=== PATIENT | female | born 1960 | race Caucasian/White ===

== ENCOUNTER 2019-08-05 13:55 | Inpatient (IN) ==
[2019-08-05] MEDS ORDERED: Clindamycin 900 MG/50 ML 900 MG/50 ML IV.SOLN IVPB ONE (14:13)
[2019-08-05] MEDS ORDERED: *HR* Promethazine 25 MG/ML VIAL IVP PRN ×2 (14:14→20:46)
[2019-08-05] MEDS ORDERED: *HR* HYDROmorphone (PF) 1 MG/ML SYRINGE IVP PRN (14:14)
[2019-08-05] MEDS ORDERED: *HR* OxyCODONE Immed Rel 5 MG TABLET PO PRN (14:14)
[2019-08-05] MEDS ORDERED: Ondansetron 4 MG/2 ML VIAL IVP ONE (14:14)
[2019-08-05] MEDS ORDERED: Ringers Solution, Lactated 1,000 ML IVC SCH ×2 (14:15→20:46)
[2019-08-05] MEDS ORDERED: Albuterol 2.5 MG/3 ML NEBULIZER IH ONE (14:22)
[2019-08-05] MEDS ORDERED: Gabapentin 300 MG CAPSULE PO ONE (14:22)
[2019-08-05] MEDS ORDERED: Dexamethasone 10 MG/ML VIAL IVP ONE (14:22)
[2019-08-05] MEDS ORDERED: Lidocaine -MPF 2% 2 ML VIAL ONE (15:12)
[2019-08-05] MEDS ORDERED: Tranexamic Acid 1,000 MG/10 ML VIAL ONE (15:12)
[2019-08-05] MEDS ORDERED: *HR* Midazolam HCl 2 MG/2 ML VIAL ONE (15:12)
[2019-08-05] MEDS ORDERED: *HR* FentaNYL (PF) 100 MCG/2 ML VIAL ONE ×2 (15:12→18:00)
[2019-08-05] MEDS ORDERED: *HR* Propofol 200 MG/20 ML VIAL IVP ONE (15:12)
[2019-08-05] MEDS ORDERED: *HR* HYDROMORPHONE 2 MG/ML VIAL ONE (15:30)
[2019-08-05] MEDS ORDERED: Ropivacaine/PF 0.5% 30 ML VIAL ONE (15:48)
[2019-08-05] MEDS ORDERED: Ethanol\\Acetic Acid\\Na Ace\\Ben 1,000 ML IRRIG.SOLN IR ONE ×2 (15:51)
[2019-08-05] MEDS ORDERED: Dexamethasone 4 MG/ML VIAL ONE (16:20)
[2019-08-05] MEDS ORDERED: Ondansetron 4 MG/2 ML VIAL ONE (16:20)
[2019-08-05] MEDS ORDERED: CLONIDINE IR ONE (16:30)
[2019-08-05] MEDS ORDERED: EPINEPHRINE IR ONE (16:30)
[2019-08-05] MEDS ORDERED: [UNRECOGNIZED DRUG - OTHER] IR ONE (16:30)
[2019-08-05] MEDS ORDERED: ROPIVACAINE IR ONE (16:30)
[2019-08-05] MEDS ORDERED: *HR* PHENYLEPHRINE 1,000 MCG/10 ML SYRINGE IVP ONE (17:37)
[2019-08-05 18:51] LABS: Hematocrit 43.3 % (35.3-44.9)
[2019-08-05] MEDS ORDERED: Acetaminophen IV 1,000 MG/100 ML INFUS..BTL ONE (19:09)
[2019-08-05] MEDS ORDERED: Acetaminophen IV 1,000 MG/100 ML INFUS..BTL IVPB ONE (19:13)
[2019-08-05] MEDS ORDERED: Sennosides 8.6 MG TABLET PO PRN (20:46)
[2019-08-05] MEDS ORDERED: MOM Conc 10 ML UD.LIQ PO PRN (20:46)
[2019-08-05] MEDS ORDERED: Ondansetron 4 MG/2 ML VIAL IVP PRN (20:46)
[2019-08-05] MEDS ORDERED: Naloxone 0.4 MG/ML INJ IVP PRN (20:46)
[2019-08-05] MEDS ORDERED: Temazepam 15 MG CAPSULE PO PRN (20:46)
[2019-08-05] MEDS ORDERED: HYDROcodone BIT/Homatropine 5 MG TABLET PO PRN (20:46)
[2019-08-05] MEDS: Clindamycin 900 MG/50 ML 900 MG/50 ML IV.SOLN IVPB SCH (21:09)
[2019-08-05] MEDS: Ascorbic Acid 500 MG TABLET PO SCH (22:03)
[2019-08-06 04:58] LABS: Lymphocytes % 7.3 %; Mean Platelet Volume 10.6 fL (9.4-12.4)
[2019-08-06 05:00] LABS: Basophils % 0.2 %; Hematocrit 39.6 % (35.3-44.9); Hemoglobin 13.6 g/dL (11.5-15.4); Immature Granulocytes % 0.7 % (0-4); Lymphocytes # 1.8 K/mcL (0.6-4.6); Mean Corpuscular HGB Conc 34.3 g/dL (31.6-35.5); Mean Corpuscular Hemoglobin 32.1 pg (28.0-33.3); Mean Corpuscular Volume 93.4 fL (83.0-100.0); Monocytes # 0.7 K/mcL (0.0-1.3); Monocytes % 2.9 %; Neutrophils # 22.1 K/mcL (1.6-8.9); Platelet Count 301 K/mcL (140-400); Red Blood Count 4.24 M/mcL (3.82-4.97); Red Cell Distribution Width 12.8 % (11.5-14.5); Segmented Neutrophils % 88.9 %; White Blood Count 24.9 K/mcL (4.3-11.1)
[2019-08-06 05:06] LABS: Basophils # 0.1 K/mcL (0.0-0.2)
[2019-08-06 05:09] LABS: BUN/Creatinine Ratio 23 (6-26); Blood Urea Nitrogen 14 mg/dL (6-20); Calcium 8.7 mg/dL (8.6-10.3); Carbon Dioxide 24 mEq/L (23-29); Chloride 101 mEq/L (98-107); Glucose 195 mg/dL (70-105); Osmolality,Calculated 290 (280-300); Potassium 4.6 mEq/L (3.5-5.1); Sodium 137 mEq/L (136-145); eGFR For African Americans > 60 (> 60); eGFR For Non-African Americans > 60 (> 60)
[2019-08-06] MEDS: Clindamycin 900 MG/50 ML 900 MG/50 ML IV.SOLN IVPB SCH (05:17)
[2019-08-06 05:42] LABS: Platelet Estimate Normal (Normal)
[2019-08-06] MEDS ORDERED: D5% in Water 1,000 ML IVC PRN (06:30)
[2019-08-06] MEDS ORDERED: Dextrose Gel 15 GM/37.5 ML TUBE PO PRN ×2 (06:30)
[2019-08-06] MEDS ORDERED: *HR* Dextrose 50 % in Water (Syg) 50 ML SYRINGE IVP PRN (06:30)
[2019-08-06] MEDS: Ascorbic Acid 500 MG TABLET PO SCH ×2 (08:21→16:56)
[2019-08-06] MEDS: Multivit/Ca/Min/Fe/FA 1 TAB TABLET PO SCH (08:21)
[2019-08-06] MEDS: Insulin LISPRO 300 UNITS/3 ML VIAL SQ SCH ×3 (08:22→16:57)
[2019-08-06] MEDS: *HR* OxyCODONE Immed Rel 5 MG TABLET PO PRN ×3 (08:34→22:17)
[2019-08-06] MEDS: Loratadine 10 MG TABLET PO SCH (16:55)
[2019-08-06] MEDS: *HR* Enoxaparin 30 MG/0.3 ML SYRINGE SQ SCH (16:56)
[2019-08-06] MEDS: Nicotine 7 MG PATCH.TD24 TD SCH (16:59)
[2019-08-06] MEDS ORDERED: *HR* Rivaroxaban 10 MG TABLET PO SCH (17:00)
[2019-08-06] MEDS ORDERED: Insulin LISPRO 300 UNITS/3 ML VIAL SQ SCH (21:00)
[2019-08-07] MEDS: *HR* OxyCODONE Immed Rel 5 MG TABLET PO PRN ×2 (02:33→07:25)
[2019-08-07] MEDS: *HR* Enoxaparin 30 MG/0.3 ML SYRINGE SQ SCH (05:05)
[2019-08-07 06:54] LABS: Basophils # 0.1 K/mcL (0.0-0.2); Basophils % 0.4 %; Eosinophils # 0.1 K/mcL (0.0-0.6); Eosinophils % 0.6 %; Hematocrit 37.8 % (35.3-44.9); Hemoglobin 12.8 g/dL (11.5-15.4); Immature Granulocytes % 0.5 % (0-4); Lymphocytes # 4.6 K/mcL (0.6-4.6); Lymphocytes % 28.6 %; Mean Corpuscular HGB Conc 33.9 g/dL (31.6-35.5); Mean Corpuscular Hemoglobin 31.9 pg (28.0-33.3); Mean Corpuscular Volume 94.3 fL (83.0-100.0); Mean Platelet Volume 10.8 fL (9.4-12.4); Monocytes % 6.3 %; Neutrophils # 10.2 K/mcL (1.6-8.9); Platelet Count 259 K/mcL (140-400); Red Blood Count 4.01 M/mcL (3.82-4.97); Red Cell Distribution Width 12.9 % (11.5-14.5); Segmented Neutrophils % 63.6 %
[2019-08-07 07:12] LABS: BUN/Creatinine Ratio 21 (6-26); Blood Urea Nitrogen 13 mg/dL (6-20); Calcium 8.8 mg/dL (8.6-10.3); Carbon Dioxide 27 mEq/L (23-29); Chloride 101 mEq/L (98-107); Glucose 115 mg/dL (70-105); Osmolality,Calculated 287 (280-300); Potassium 3.9 mEq/L (3.5-5.1); Sodium 138 mEq/L (136-145); eGFR For African Americans > 60 (> 60); eGFR For Non-African Americans > 60 (> 60)
[2019-08-07] MEDS: Insulin LISPRO 300 UNITS/3 ML VIAL SQ SCH (08:42)
[2019-08-07] MEDS: Ascorbic Acid 500 MG TABLET PO SCH (08:48)
[2019-08-07] MEDS: Multivit/Ca/Min/Fe/FA 1 TAB TABLET PO SCH (08:48)
[2019-08-07] MEDS: Loratadine 10 MG TABLET PO SCH (08:49)
[2019-08-07] MEDS: Nicotine 7 MG PATCH.TD24 TD SCH (08:50)
[2019-08-07 11:35] VITALS: BP 182/90
== END 2019-08-07 13:49 | disposition home health service (06) | DRG 468 ==
LOC: SAMDAY 13:55 → 3NENU 14:04
PROVIDERS: ADMIT Orthopaedic Surgery; ATTEND Orthopaedic Surgery